=== PATIENT | male | born 1965 | race Caucasian/White ===

== ENCOUNTER → 2016-09-25 | Outpatient (CLI) | payer OTHER ==
--- NOTE | 2016-09-25 15:03 | DI ---
LEFT HAND, 09/25/2016 1:32 PM: Clinical History: Injury. Previous Exam: None at this facility. 3 views are submitted. There is no acute soft tissue, osseous, or joint abnormality. Motion artifacts are present on the lateral view. Reading: No fracture or dislocation is identified. If symptoms persist, repeat views of the hand are recommend ed.
== END ==
LOC: MOB RAD 13:34
PROVIDERS: ATTEND Physician Assistant Medical
DX: S69.92XA Unspecified injury of left wrist, hand and finger(s), initial encounter (principal); S63.502A Unspecified sprain of left wrist, initial encounter; W31.89XA Contact with other specified machinery, initial encounter; Y93.H3 Activity, building and construction; Y92.79 Other farm location as the place of occurrence of the external cause; Y99.0 Civilian activity done for income or pay
CPT/HCPCS: 73130

== ENCOUNTER → 2016-10-03 | Outpatient (CLI) | payer OTHER ==
--- NOTE | 2016-10-03 16:28 | DI ---
MRI LEFT WRIST SCAN, 10/03/2016 2:57 PM: Clinical History: Sprain of the left wrist. Previous Exam: None at this facility. Technique: Axial, coronal, and sagittal PD; fat saturated PD. There are motion artifacts on the PD fat-saturated axial sequence. All other sequences are motion gillian e. There is no soft tissue edema or abnormal bone signal pattern with the exception of some small cystic changes in the lunate bone. No abnormal joint effusions are present. The scapholunate and lunatotriq uetral ligaments are normal. The triangular fibrocartilage and the dorsal and volar radioulnar ligame nts are unremarkable. The extensor and flexor tendons and median nerve are intact. Readin. There is no joint effusion present. The extrinsic and intrinsic ligaments of the wrist as well as the triangular fibrocartilage are intact. 2. The flexor and extensor tendons are normal.
== END ==
LOC: MRI 14:49
PROVIDERS: ATTEND Physician Assistant Medical
DX: S63.502A Unspecified sprain of left wrist, initial encounter (principal)
CPT/HCPCS: 73218